=== PATIENT | female | born 1975 | race American Indian/Alaskan Native ===

== ENCOUNTER 2018-03-01 17:19 | Emergency (ER) | payer SELFPAY | END 2018-03-01 17:20 | disposition left against medical advice (07) | LOC: ED 17:19 | DX: S62.501A Fracture of unspecified phalanx of right thumb, initial encounter for closed fracture (principal); Z53.21 Procedure and treatment not carried out due to patient leaving prior to being seen by health care provider; X58.XXXA Exposure to other specified factors, initial encounter; Y93.89 Activity, other specified; Y92.89 Other specified places as the place of occurrence of the external cause; Y99.8 Other external cause status ==

== ENCOUNTER 2019-07-19 22:18 | Emergency (ER) | payer OTHER ==
[2019-07-19] MEDS ORDERED: IPRATROPIUM/ALBUTEROL SULFATE 3 ML AMPUL.NEB IH ONE ×2 (22:35→23:02)
[2019-07-19 22:55] VITALS: BP 161/99
[2019-07-20] MEDS ORDERED: methylPREDNISolone Sod Succinate 125 MG/2 ML INJ IM ONE (00:05)
--- NOTE | 2019-07-20 00:46 | XRay Report ---
CHEST 2 VIEWS INDICATION: cough, dyspnea. Chest pain for the past 2 days COMPARISON: None FINDINGS: Support devices: None. Heart: Within normal limits. Lungs/pleura: No acute air space or interstitial disease. No pneumothorax. Additional findings: None. IMPRESSION: 1. No acute findings. Signer Name: Jesse Gillespie MD Signed: 07/20/2019 12:42 AM Workstation Name: [id number]
--- NOTE | 2019-07-20 01:03 | Emergency Department Report ---
- General Chief Complaint: Adult Asthma Stated Complaint: ASTHMA Source: patient Mode of arrival: Ambulatory Limitations: No Limitations - History of Present Illness Initial Comments: Patient is a 44-year-old female with a history of asthma who presents to the ED with minimal acute onset persistent numbness on the sinus congestion, dry cough, chest tightness, wheezing or shortness of breath for the last 2 days but worse in the last 2 hours. Patient states that she has been using her albuterol inhaler as needed for shortness of breath but that about 2 hours prior to arrival in the ED she was in the shower and developed chest tightness, wheezing or shortness of breath and became lightheaded. Patient states that she called the EMS who brought her to the ED for evaluation. Patient denies chest pain, dizziness, fever, chills, nausea, vomiting, abdominal pain, sore throat, headache, syncope or palpitations. MD Complaint: cough, nasal congestion, other (shortness of breath and wheezing) -: Sudden, days(s) (2) Severity: moderate Severity scale (0 -10): 5 Quality: dull, aching Consistency: intermittent Improves With: nothing Worsens With: nothing Associated Symptoms: denies other symptoms, rhinorrhea, nasal congestion, cough, shortness of breath. denies: fever, chills, myalgias, diaphoresis, headache, sore throat, stiff neck, chest pain, abdominal pain, nausea, vomiting, diarrhea, dysuria, rash, right sweats, epistaxis, hoarseness, ear pain Treatments Prior to Arrival: none - Related Data Previous Rx's Medication Instructions Recorded Last Taken Type Benzonatate [Tessalon Perles] 100 mg PO Q8HR #30 capsule 07/20/19 Unknown Rx Cetirizine HCl [Zyrtec 10mg tab] 10 mg PO DAILY #30 tablet 07/20/19 Unknown Rx Doxycycline Hyclate 100 mg PO Q12H #20 tablet. 07/20/19 Unknown Rx Prednisone [predniSONE 10 mg 10 mg PO .TAPER #21 tab.ds.pk 07/20/19 Unknown Rx (6-Day Pack, 21 Tabs)] Allergies Allergy/AdvReac Type Severity Reaction Status Date / Time No Known Allergies Allergy Verified 01/20/16 20:45 ED Review of Systems ROS: Stated complaint: ASTHMA Other details as noted in HPI Constitutional: denies: chills, fever Eyes: denies: eye pain, eye discharge, vision change ENT: congestion. denies: ear pain, throat pain Respiratory: cough, shortness of breath, wheezing Cardiovascular: denies: chest pain, palpitations Endocrine: no symptoms reported Gastrointestinal: denies: abdominal pain, nausea, diarrhea Genitourinary: denies: urgency, dysuria, discharge Musculoskeletal: denies: back pain, joint swelling, arthralgia Skin: denies: rash, lesions Neurological: denies: headache, weakness, paresthesias Psychiatric: denies: anxiety, depression Hematological/Lymphatic: denies: easy bleeding, easy bruising ED Past Medical Hx - Past Medical History Previous Medical History?: Yes Hx Asthma: Yes Additional medical history: Graves disease, Myasthenia Gravis - Surgical History Past Surgical History?: No - Social History Smoking Status: Never Smoker Substance Use Type: None - Medications Home Medications: Home Medications Medication Instructions Recorded Confirmed Last Taken Type Benzonatate [Tessalon Perles] 100 mg PO Q8HR #30 capsule 07/20/19 Unknown Rx Cetirizine HCl [Zyrtec 10mg tab] 10 mg PO DAILY #30 tablet 07/20/19 Unknown Rx Doxycycline Hyclate 100 mg PO Q12H #20 tablet. 07/20/19 Unknown Rx Prednisone [predniSONE 10 mg 10 mg PO .TAPER #21 tab.ds.pk 07/20/19 Unknown Rx (6-Day Pack, 21 Tabs)] ED Physical Exam - General Limitations: No Limitations General appearance: alert, in no apparent distress - Head Head exam: Present: atraumatic, normocephalic, normal inspection - Eye Eye exam: Present: normal appearance, PERRL, EOMI - ENT ENT exam: Present: normal exam, normal orophraynx, mucous membranes moist, TM's normal bilaterally, normal external ear exam - Neck Neck exam: Present: normal inspection, full ROM. Absent: tenderness, meningismus, lymphadenopathy, thyromegaly - Respiratory Respiratory exam: Present: wheezes (mild diffuse wheezes throughout). Absent: respiratory distress, rales, rhonchi, chest wall tenderness, accessory muscle use, decreased breath sounds - Cardiovascular Cardiovascular Exam: Present: regular rate, normal rhythm, normal heart sounds. Absent: systolic murmur, diastolic murmur, rubs, gallop - GI/Abdominal GI/Abdominal exam: Present: soft, normal bowel sounds. Absent: tenderness, guarding, hyperactive bowel sounds, hypoactive bowel sounds, organomegaly - Extremities Exam Extremities exam: Present: normal inspection, full ROM, normal capillary refill - Back Exam Back exam: Present: normal inspection, full ROM. Absent: tenderness, CVA tenderness (R), CVA tenderness (L), muscle spasm, paraspinal tenderness - Neurological Exam Neurological exam: Present: alert, oriented X3, CN II-XII intact, normal gait, reflexes normal - Psychiatric Psychiatric exam: Present: normal affect, normal mood - Skin Skin exam: Present: warm, dry, intact, normal color. Absent: rash ED Course Vital Signs 07/19/19 07/19/19 22:31 23:05 Temperature 98.9 F Pulse Rate 75 Pulse Rate [ 90 Posterior Bilateral Throughout] Respiratory 14 Rate Respiratory 18 Rate [Posterior Bilateral Throughout] Blood Pressure 161/99 O2 Sat by Pulse 99 Oximetry ED Medical Decision Making - Radiology Data Radiology results: report reviewed, image reviewed Findings [address] [address] XRay Report Signed Patient: ANDRA ANNE MR#: [id number] : 1975 Acct:[id number] Age/Sex: 44 / F ADM Date: 07/19/19 Loc: ED Attending Dr: Ordering Physician: LIT KAMINSKI Date of Service: 07/20/19 Procedure(s): XR chest routine 2V Accession Number(s): [id number] cc: LIT KAMINSKI Fluoro Time In Minutes: CHEST 2 VIEWS INDICATION: cough, dyspnea. Chest pain for the past 2 days COMPARISON: None FINDINGS: Support devices: None. Heart: Within normal limits. Lungs/pleura: No acute air space or interstitial disease. No pneumothorax. Additional findings: None. IMPRESSION: 1. No acute findings. Signer Name: Jesse Gillespie MD Signed: 07/20/2019 12:42 AM Workstation Name: [id number] Transcribed By: JW Dictated By: Jesse Gillespie MD Electronically Authenticated By: Jesse Gillespie MD Signed Date/Time: 07/20/1941 DD/ - Medical Decision Making This is a 46-year-old female with a history of asthma who presents to the ED with complaint of persistent nasal and sinus congestion, shortness of breath, dry cough, chest tightness and wheezing. In the ED, patient is alert and oriented 3 and is not in distress. Patient received DuoNeb treatment in the ED and Solu-Medrol 125 mg intramuscular injection. Chest x-ray shows no acute cardiopulmonary abnormalities or pneumonitis. On reevaluation, patient wheezing has resolved and patient herself states that the chest tightness has also resolved. Patient was discharged home on medications and advised follow-up with her primary care physician in 3-5 days for reevaluation or return to the ED immediately if symptoms get worse. - Differential Diagnosis URI; Bronchitis; Asthma; Flu; Pneumonia Critical care attestation.: If time is entered above; I have spent that time in minutes in the direct care of this critically ill patient, excluding procedure time. ED Disposition Clinical Impression: Acute upper respiratory infection Asthmatic bronchitis with acute exacerbation Qualifiers: Asthma severity: mild Asthma persistence: intermittent Qualified Code(s): J45.21 - Mild intermittent asthma with (acute) exacerbation Disposition: - TO HOME OR SELFCARE Is pt being admited?: No Does the pt Need Aspirin: No Condition: Stable Instructions: Asthma (ED), Acute Bronchitis (ED), Upper Respiratory Infection (ED) Additional Instructions: Take medication with food, drink plenty of fluids and follow-up with primary care physician in 3-5 days for reevaluation. Return to the ED immediately if symptoms get worse. Prescriptions: Doxycycline Hyclate 100 mg PO Q12H #20 tablet.dr Prednisone [predniSONE 10 mg (6-Day Pack, 21 Tabs)] 10 mg PO .TAPER #21 tab.ds.pk Benzonatate [Tessalon Perles] 100 mg PO Q8HR #30 capsule Cetirizine HCl [Zyrtec 10mg tab] 10 mg PO DAILY #30 tablet Referrals: CECY ESPINOSA MD [Staff Physician] - 3-5 Days Time of Disposition: 01:09 Print Language: GREEK
== END 2019-07-20 01:20 | disposition home or self-care (01) ==
LOC: ED 22:18
DX: J06.9 Acute upper respiratory infection, unspecified (principal); J45.901 Unspecified asthma with (acute) exacerbation; Z79.899 Other long term (current) drug therapy
CPT/HCPCS: 71046; 94640; 96372; 99283; J2930; 94644

== ENCOUNTER 2021-10-07 17:32 | Emergency (ER) | payer SELFPAY ==
[2021-10-07 17:45] VITALS: BP 182/89
--- NOTE | 2021-10-07 18:31 | XRay Report ---
XR foot 3+V LT, XR ankle 3+V LT INDICATION / CLINICAL INFORMATION: injury. COMPARISON: None available. FINDINGS: No acute fracture. Normal alignment. Joint spaces are preserved. No destructive osseous lesion or s uspicious periosteal reaction. Impression: 1.No acute fracture. Signer Name: Gurvinder Cardona MD Signed: 10/07/2021 6:27 PM Workstation Name: [id number]
== END 2021-10-07 19:15 | disposition left against medical advice (07) ==
LOC: ED 17:32
DX: S99.922A Unspecified injury of left foot, initial encounter (principal); Z53.21 Procedure and treatment not carried out due to patient leaving prior to being seen by health care provider; X58.XXXA Exposure to other specified factors, initial encounter; Y93.89 Activity, other specified; Y92.89 Other specified places as the place of occurrence of the external cause; Y99.8 Other external cause status